=== PATIENT | female | born 1960 | race Caucasian/White ===

== ENCOUNTER 2024-06-22 16:50 | Outpatient (CLI) | payer OTHER, SELFPAY ==
--- NOTE | 2024-06-22 17:01 | XR_ITS ---
WS: [id number] Lateral views of cervical spine in the flexion, extension and neutral positions. 06/22/2024 Clinical Data: Cervicalgia Comparison: Cervical spine, 05/25/2016 Findings: No compression fractures or subluxation is present. Disc space narrowing at C4-C5, C5-C6 and C6-C7 is noted. There are osteophytes C4-C7. No prevertebral soft tissue swelling is noted. The lateral view of the odontoid is normal. On flexion and extension there is no instability. XR/XR cervical spine fl/ex [id number] Impression: 1. Multilevel degenerative disc narrowing and osteoarthritis. 2. No instability on flexion or extension.
== END 2024-06-22 16:51 | disposition home or self-care (01) ==
PROVIDERS: Family Provider Family Medicine; PCP Nurse Practitioner Family; Visit Provider Anesthesiology Pain Medicine
DX: M50.321 Other cervical disc degeneration at C4-C5 level (principal); M50.322 Other cervical disc degeneration at C5-C6 level; M50.323 Other cervical disc degeneration at C6-C7 level; M25.78 Osteophyte, vertebrae
CPT/HCPCS: 72040

== ENCOUNTER 2024-09-01 13:36 | Outpatient (CLI) | payer MEDICAID, SELFPAY ==
--- NOTE | 2024-09-01 13:40 | MR_ITS ---
WS: [id number] MRI CERVICAL SPINE NONCONTRAST TECHNIQUE: Sagittal T1, T2 and STIR imaging. Axial T2, gradient, and fiesta imaging. CLINICAL INFORMATION: Cervicalgia FINDINGS: Straightening of the normal cervical lordosis. Disc bulging worse at C3-C4 C4-C5 and C5-C6 with sligh t indentation of the cervical cord. Cord signal is normal. C2-C3: Mild facet arthropathy. Spinal canal and foramen are patent. C3-C4: Disc osteophyte complex with endplate ridging. Mild central canal stenosis. Slight indentation on the cervical cord. RIGHT facet arthropathy with periarticular edema compatible with synovitis. Mo derate RIGHT facet arthropathy. Moderate RIGHT and mild LEFT foraminal narrowing. C4-C5: Disc osteophyte complex with moderate central canal stenosis. Slight indentation on the cervic al cord. Severe bilateral bony foraminal narrowing. Moderate facet arthropathy. C5-C6: Disc osteophyte complex with moderate central canal stenosis. Uncovertebral joint hypertrophy. Severe LEFT greater than RIGHT bony foraminal narrowing. Moderate facet arthropathy. C6-C7: Disc osteophyte complex with endplate ridging. Moderate to severe LEFT bony foraminal narrowin g. Mild RIGHT bony foraminal narrowing. Spinal canal is patent. C7-T1: Mild LEFT and no significant RIGHT foraminal narrowing. Spinal canal is patent. Shallow central protrusion in the upper thoracic canal at T2-3. Visualized brain stem structures: Normal. Prevertebral soft tissues: Normal. MR/MR cervical spin wo con* [id number] IMPRESSION: 1. Straightening with slight reversal of the normal cervical lordosis. 2. RIGHT C3-C4 facet synovitis with socorro-articular edema likely degenerative o r inflammatory. 3. Mild central canal stenosis C3-C4 and moderate C4-C5 C5-C6 4. Severe bilateral C4-C5 and C5-C6 bony foraminal narrowing. Moderate to yandel re LEFT C6-C7 bony foraminal narrowing.
== END 2024-09-01 13:37 | disposition home or self-care (01) ==
PROVIDERS: Visit Provider Anesthesiology Pain Medicine
DX: M50.21 Other cervical disc displacement, high cervical region (principal); M50.321 Other cervical disc degeneration at C4-C5 level; M50.322 Other cervical disc degeneration at C5-C6 level; M25.78 Osteophyte, vertebrae; M47.892 Other spondylosis, cervical region; M99.61 Osseous and subluxation stenosis of intervertebral foramina of cervical region
CPT/HCPCS: 72141